=== PATIENT | male | born 1960 | race Caucasian/White ===

== ENCOUNTER → 2018-08-02 | Outpatient (CLI) | payer OTHER ==
--- NOTE | 2018-08-05 10:47 | SLEEPCENT ---
DATE OF STUDY: 08/02/2018 ORDERING PROVIDER: SHUKRI Lisa Nocturnal polysomnography was performed for the titration of pressure therapy in this patient with a clinical history of obstructive sleep apnea syndrome confirmed by home testing revealing respiratory event index of 69.8. For testing, the patient was fit with a Cyphoma Simplus full face mask of medium size. 4 cm of water pressure were applied to the circuit, and the lights were extinguished. 8 hours of 5 minutes of data were reviewed. There were 442 minutes of sleep identified. Sleep latency was short at 7 minutes. Rapid eye movement (REM) latency was short at 59 minutes. Sleep architecture was quite good with four REM cycles noted. Overall sleep efficiency was 92.9%. The electrocardiogram showed a sinus rhythm. Average heart rate 74 beats per minute. Electroencephalogram (EEG) showed normal waveforms for awake and sleep. Respiratory events were well palliated with CPAP at a pressure of +15. There was some residual mild hypopneic patterning but no oxygen desaturations or arousal. There was significant limb activity noted. Four trains of 30 events were identified. However, limb movement arousal index was only 0.8. IMPRESSION: Obstructive sleep apnea syndrome (G47.33). RECOMMENDATION: Nightly use of pressure therapy, 15 cm of water.
== END ==
LOC: M SLEEP 20:00
PROVIDERS: ATTEND Physician Assistant
DX: G47.33 Obstructive sleep apnea (adult) (pediatric) (principal); R40.0 Somnolence; R06.83 Snoring